=== PATIENT | female | born 1975 | race Caucasian/White ===

== ENCOUNTER 2020-04-28 14:41 | Emergency (ER) | payer OTHER, BC ==
[~2020-04-28 14:41] MED LIST: AMOXICILLIN875 MG PO; DELSYM30 MG/5 ML PO; IBUPROFEN600 MG PO; KEPPRA1000 MG PO; KEPPRA500 MG PO; OMNICEF 300 MG300 MG PO; TEGRETOL 200 M200 MG PO; TEGRETOL200 MG PO; ZITHROMAX250 MG PO
[2020-04-28 15:30] LABS: HEMOGLOBIN 14.7 gm/dl (12.3-15.3); RED BLOOD COUNT 4.75 M/UL (4.00-5.10); WHITE BLOOD COUNT 6.9 K/UL (4.5-11.0)
[2020-04-28 17:12] LABS: BUN/CREATININE RATIO 22 (0-10)
== END 2020-04-28 20:18 | disposition left against medical advice (07) ==
LOC: ER1 14:41
PROVIDERS: Student in an Organized Health Care Education/Training Program
DX: R56.9 Unspecified convulsions (principal); Z79.899 Other long term (current) drug therapy; Z88.8 Allergy status to other drugs, medicaments and biological substances
CPT/HCPCS: 80053; 80307; 81001; 82550; 82553; 83735; 83874; 84100; 84484; 84702; 84703; 85025; 93005; 96365; 99285; G0480; J1953; J7030

== ENCOUNTER 2020-07-16 08:42 | Emergency (ER) | payer OTHER ==
[2020-07-16 10:20] LABS: RED BLOOD COUNT 4.31 M/UL (4.00-5.10); WHITE BLOOD COUNT 4.1 K/UL (4.5-11.0)
[2020-07-16 10:37] LABS: BUN/CREATININE RATIO 21 (0-10)
[2020-07-16] MEDS ORDERED: ZOFRAN ODT 4 MG4 MG PO (11:14)
[2020-07-16] MEDS ORDERED: MACROBID 100 M100 MG PO (11:14)
== END 2020-07-16 12:45 | disposition home or self-care (01) ==
LOC: ER1 08:42
PROVIDERS: Emergency Medicine
DX: G40.909 Epilepsy, unspecified, not intractable, without status epilepticus (principal); N39.0 Urinary tract infection, site not specified
CPT/HCPCS: 80053; 80307; 81001; 84703; 85025; 96374; 99284; J0696

== ENCOUNTER 2020-09-11 19:04 | Emergency (ER) | payer SELFPAY ==
[~2020-09-11 19:04] MED LIST changes: +MACROBID 100 M100 MG PO; +ZOFRAN ODT 4 MG4 MG PO
== END 2020-09-11 20:30 | disposition left against medical advice (07) ==
LOC: ER1 19:04
DX: Z53.21 Procedure and treatment not carried out due to patient leaving prior to being seen by health care provider (principal)

== ENCOUNTER 2020-11-30 11:42 | Emergency (ER) | payer OTHER ==
[2020-11-30 14:23] LABS: HEMOGLOBIN 11.9 gm/dl (12.3-15.3); RED BLOOD COUNT 3.77 M/UL (4.00-5.10); WHITE BLOOD COUNT 4.8 K/UL (4.5-11.0)
[2020-11-30 14:40] LABS: BUN/CREATININE RATIO 12 (0-10)
[2020-11-30] MEDS ORDERED: POTASSIUM CHLO20 ME1 PO (16:00)
[2020-11-30] MEDS ORDERED: KEPPRA500 MG PO (16:00)
== END 2020-11-30 16:19 | disposition home or self-care (01) ==
LOC: ER1 11:42
PROVIDERS: Physician Assistant Medical
DX: E87.6 Hypokalemia (principal); G40.909 Epilepsy, unspecified, not intractable, without status epilepticus; Z88.8 Allergy status to other drugs, medicaments and biological substances; Z20.822 Contact with and (suspected) exposure to COVID-19
CPT/HCPCS: 71045; 80053; 80307; 81001; 82550; 82553; 83605; 83874; 84484; 84703; 85025; 96374; 99285; J1953; U0002

== ENCOUNTER 2021-02-01 19:32 | Emergency (ER) | payer OTHER ==
[~2021-02-01 19:32] MED LIST changes: +POTASSIUM CHLO20 ME1 PO
[2021-02-01 20:25] LABS: HEMOGLOBIN 12.9 gm/dl (12.3-15.3); RED BLOOD COUNT 4.25 M/UL (4.00-5.10); WHITE BLOOD COUNT 6.9 K/UL (4.5-11.0)
[2021-02-01 20:42] LABS: BUN/CREATININE RATIO 18 (0-10)
== END 2021-02-01 22:05 | disposition home or self-care (01) ==
LOC: ER1 19:32
PROVIDERS: Emergency Medicine
DX: G40.909 Epilepsy, unspecified, not intractable, without status epilepticus (principal); Z91.14 Patient's other noncompliance with medication regimen; Z20.822 Contact with and (suspected) exposure to COVID-19
CPT/HCPCS: 80053; 83735; 85025; 93005; 96374; 99284; J1953; J2060; U0002

== ENCOUNTER 2021-03-04 19:54 | Emergency (ER) | payer OTHER ==
[2021-03-04 20:27] LABS: HEMOGLOBIN 12.3 gm/dl (12.3-15.3); RED BLOOD COUNT 4.02 M/UL (4.00-5.10); WHITE BLOOD COUNT 7.1 K/UL (4.5-11.0)
== END 2021-03-05 00:52 | disposition home or self-care (01) ==
LOC: ER1 19:54
PROVIDERS: Family Medicine
DX: G40.909 Epilepsy, unspecified, not intractable, without status epilepticus (principal); R00.0 Tachycardia, unspecified; Z88.8 Allergy status to other drugs, medicaments and biological substances; Z20.822 Contact with and (suspected) exposure to COVID-19
CPT/HCPCS: 71045; 80048; 80156; 80307; 81001; 83735; 85025; 87077; 87086; 87186; 93005; 96374; 96375; 99285; J1953; U0002

== ENCOUNTER 2021-07-19 00:19 | Emergency (ER) | payer OTHER ==
[~2021-07-19] VITALS: Ht 154.9 cm; Wt 50.8 kg
[2021-07-19 00:44] LABS: HEMOGLOBIN 12.1 gm/dl (12.3-15.3); WHITE BLOOD COUNT 3.7 K/UL (4.5-11.0)
[2021-07-19 01:20] LABS: BUN/CREATININE RATIO 12 (0-10)
== END 2021-07-19 05:15 | disposition home or self-care (01) ==
LOC: ER1 00:19
DX: G40.909 Epilepsy, unspecified, not intractable, without status epilepticus (principal)
CPT/HCPCS: 80053; 82550; 82553; 84484; 85025; 93005; 96374; 96375; 99284; J1953; J2060; J7030

== ENCOUNTER 2021-08-25 22:54 | Emergency (ER) | payer OTHER | END 2021-08-26 01:26 | disposition home or self-care (01) | LOC: ER1 22:54 | PROVIDERS: Surgery | PROC: 0DC58ZZ Extirpation of Matter from Esophagus, Via Natural or Artificial Opening Endoscopic (ICD-10-PCS; principal; 2021-08-26 00:27) | DX: T18.128A Food in esophagus causing other injury, initial encounter (principal); G40.909 Epilepsy, unspecified, not intractable, without status epilepticus; Z79.899 Other long term (current) drug therapy; Z88.8 Allergy status to other drugs, medicaments and biological substances; X58.XXXA Exposure to other specified factors, initial encounter; Y93.89 Activity, other specified | CPT/HCPCS: 99283; J2704; J3010 ==